=== PATIENT | female | born 1935 | race Caucasian/White ===

== ENCOUNTER 2017-03-17 09:53 | Observation (INO) | payer MEDICARE ==
[2017-03-17] VITALS (10 sets, daily range): BP systolic 103–149; BP diastolic 60–88; PULSE 50–69; RESP 12–20; O2SAT 95–97
[~2017-03-17] VITALS: Ht 154.9 cm; Wt 76.6 kg
--- NOTE | 2017-03-17 10:05 | ED.REPORT ---
HPI-General Illness Date of Service Mar 17, 2017 ED Provider: Ancelmo Mabry MD The patient is a 81 year old female with history of atrial fibrillation on warfarin, hypertension, hyperlipidemia, GERD, and hypothyroidism, who was brought to the emergency department by EMS after she had a near syncopal episode prior to arrival. Last night she woke up after midnight and noticed palpitations and chest "burning." She fell back asleep and when she woke up this morning she felt warm, clammy, and generally weak. Later in the morning she suddenly developed visual changes and lightheadedness. The patient describes the visual changes as everything going hazy and foggy. This lasted for a few minutes and she was able to walk and sit down. She did not fully lose consciousness or hit her head. After the episode she felt generally weak. She denies lateralizing weakness. She is currently taking sotalol twice daily (unsure the dose). Her dose has not recently changed. Nursing Notes Stated Complaint: NEAR SYNCOPE FALL Chief Complaint: Dysrhythmia/Cardiac Nursing Notes Reviewed: Yes Allergies: Uncoded Allergies: NKDA (Allergy, Unknown, 05/03/04) NO KNOWN DRUG ALLERGIES (Ingr Allergy) (Allergy, Unknown, Y, 05/03/04) VALIUM (Allergy, Unknown, 05/03/04) General Time Seen by MD: 10:00 Chief Complaint Other (near syncope) Hx Obtained From: Patient, EMS Arrived By: Ambulance Sudden in Onset?: Yes Onset Occurred: 16 - 30 minutes ago Symptom Duration: 1 - 15 minutes Location: : Chest Quality: Burning Severity: Current: No pain currently Severity: Maximum: Moderate Recent Healthcare: No recent doctor visit, No recent hospitalization Similar Sx Previous: No Past Medical History Past Medical History Atrial fibrillation Hypertension Hyperlipidemia GERD Hypothyroidism Past Surgical History Hysterectomy Cholecystectomy Appendectomy Tubal ligation Family History Noncontributory Smoking History Unknown if Ever Smoker Social History Other Social History: Good social support, Local resident Ambulatory Status Independent Review of Systems Full Review of Systems Constitutional: Reports: Weakness - generalized Cardiovascular: Reports: Chest pain (burning), Palpitations Neurologic: Reports: Change LOC (near syncope), Dizziness, Lightheaded, Vision change, Denies: Focal weakness, Headache Complete sys rev & neg: except as marked. Physical Exam Vital Signs Vital Signs Date Time Temp Pulse Resp B/P Pulse Ox O2 Delivery O2 Flow Rate FiO2 4/21/17 12:33 64 14 112/78 97 Room Air 03/17/17 11:26 65 112/72 03/17/17 10:05 36.6 50 12 103/60 96 Room Air Initial VS: Reviewed Head / Eyes: Atraumatic, Normocephalic, PERRL ENT: Mucous membranes moist, Conjunctiva normal, No scleral icterus Neck: Supple, Non-tender, Full range of motion Respiratory: Breath sounds normal, Clear to auscultation, No respiratory distress Abdomen / GI: Soft, Non-tender, No guarding, No rebound, No distention Lymphatic: No lymphadenopathy Extremities: Vascular intact, Neuro intact, No swelling, No tenderness Skin: Warm, Dry, No cyanosis Psychiatric: Mood/affect normal, Behavior normal, Normal thought content General/Constitutional: Awake, Alert, Cooperative Cardiovascular: Heart sounds NL, Pulses = bilaterally Heart Rate / Rhythm: Positive: Bradycardia, Irregular rhythm Lower Extremity / Pelvis / MS: No swelling, Non-tender, Neurologic intact, Vascular intact, No edema Neurologic: Oriented X3, Speech NL, No motor deficits, No sensory deficits, CN II - XII intact, Cerebellar NL, Memory NL No pronator drift. Strength is 5/5 to all 4 extremities. Interpretation & Diagnostics Lab Results Interpretation Result Diagram: 03/17/17 1000 03/17/17 1000 Test 03/17/17 10:00 White Blood Count 6.2th/mm3 (3.8-10.1) Red Blood Count 4.28mil/mm3 (3.90-5.20) Hemoglobin 13.3g/dL (12.0-15.6) Hematocrit 40.4% (35.0-46.0) Mean Corpuscular Volume 94.4fL (81-100) Mean Corpuscular Hemoglobin 31.1pg (27.0-35.0) Mean Corpuscular Hemoglobin Concent 32.9% (32.0-37.0) Red Cell Distribution Width 12.6% (12.3-15.4) Platelet Count 205bil/L (150-400) Neutrophils (%) (Auto) 66.7% (40-74) Lymphocytes (%) (Auto) 23.1% (14-46) Monocytes (%) (Auto) 9.2% (4-12) Eosinophils (%) (Auto) 0.6% (0-5) Basophils (%) (Auto) 0.2% (0-3) Prothrombin Time 25.4sec (8.1-12.5) Prothromb Time International Ratio 2.33ratio Sodium Level 139mEq/L (134-144) Potassium Level 4.2mEq/L (3.5-5.2) Chloride Level 102mEq/L (97-108) Carbon Dioxide Level 24mmol/L (18-29) Blood Urea Nitrogen 27mg/dL (8-27) Creatinine 0.59mg/dL (0.57-1.00) Estimat Glomerular Filtration Rate 141mL/min (>59) Glucose Level 99mg/dL (60-99) Calcium Level 9.9mg/dL (8.5-10.1) Magnesium Level 2.0mg/dL (1.6-2.6) Total Bilirubin 0.3mg/dL (0.0-1.2) Aspartate Amino Transf (AST/SGOT) 23U/L (0-50) Alanine Aminotransferase (ALT/SGPT) 16U/L (0-32) Alkaline Phosphatase 55U/L (25-165) Troponin T < 0.010ug/L (0.0-0.011) Total Protein 7.3g/dL (6.4-8.4) Albumin 4.4g/dL (3.4-5.0) Thyroid Stimulating Hormone (TSH) 4.870uIU/mL (0.450-4.500) ECG Interpretation ECG Interpretation: Irregular sinus bradycardia with a rate of 49 bpm Nl axis Nl intervals No ST segment changes No T wave abnormalities No prior EKGs available for comparison Time: 10:17 Interpreted by: ED physician X-Ray Chest Interpretation Chest Xray Interpretation: IMPRESSION: Negative chest. No overt heart failure, large pneumothorax, or pleural effusion. Dictated by: Bam Marques M.D. on 03/17/2017 at 10:09 Interpretation / Wet Read by: Interpret - Radiologist Re-Eval/Medical Decision Med Decision/Clinical Course The patient is a 81 year old female with history of atrial fibrillation on warfarin, hypertension, hyperlipidemia, GERD, and hypothyroidism, who was brought to the emergency department by EMS after she had a near syncopal episode prior to arrival. Last night she woke up after midnight and noticed palpitations and chest "burning." She fell back asleep and when she woke up this morning she felt warm, clammy, and generally weak. Later in the morning she suddenly developed visual changes and lightheadedness. The patient describes the visual changes as everything going hazy and foggy. This lasted for a few minutes and she was able to walk and sit down. She did not fully lose consciousness or hit her head. After the episode she felt generally weak. She denies lateralizing weakness. Upon arrival to the emergency department the patient is bradycardic with a heart rate in the 40s and borderline hypotensive with a systolic blood pressure in the 80s to 90s. She reports feeling lightheaded and presyncopal. EKG was obtained and interpreted by myself as documented above. It appears that she is in sinus arrhythmia in the 40s to 50s. I do not see any acute ischemic changes. IV access was obtained via talent analyst to 1 L saline bolus. Given the patient's symptomatic bradycardia I administered 0.5 mg of atropine. Her heart rate improved into the 60s to 80s and her blood pressure improved to normal range. Labs: CBC: unremarkable CMP: unremarkable Troponin: negative TSH: 4.8 INR: 2.33 CXR: Obtained, reviewed and interpreted by myself shows no evidence of infiltrates, effusions or pneumothorax. Cardiac and mediastinal silhouette normal. No bony or soft tissue abnormalities. Because of the patient's significant bradycardia is not entirely clear. That being said, I suspect that she may be an adverse effects related to the dose of her beta paradise. Given the severity of her symptoms and need for intervention I admitted her to the hospital for observation and further revision of her current medications. She has not required percutaneous pacing though pacer pads have been applied should she require this. She was discussed with the admitting hospitalist and transferred in stable condition. Plan for involvement of cardiology on an inpatient basis. Source of Hx: Old records, EMS Time of Eval: 10:35 Re-Evaluation/Progress Note: Discussed importance for admission with the patient. She is worried about her who is at home. She is agreeable with plan and will work on getting ahold of her . Consultation : Referral / Consult Name: Cesar Gamino MD Consulted With: Hospitalist Call Returned at: 12:41 Refrigeration Houseman: Will see patient, Agrees with eval, Agrees with plan, Accepts admit Counseled Regarding: Diagnosis, Lab results, Need for admission Discharge & Departure Primary Impression: Bradycardia Additional Impressions: Near syncope Hypotension Hypotension type: unspecified hypotension type Qualified Code: I95.9 - Hypotension, unspecified Disposition: ADMITTED TO HOSPITAL Discharge Condition All VS Reviewed: Yes Condition: Stable Referrals: Akira Triplett MD (PCP) Stan Enriquez MD Crit Care Except Billable Proc Time Spent: 105-134 minutes Services Performed: Patient management by me, Time spent at bedside, Reviewing test results, Reviewing imaging, Discussing patient care, Documentation in record, Time with fam/surrogate Scribe Attestation Portions of this note were transcribed by Yanet Curry. I, Dr. Mabry personally performed the history, physical exam and medical decision-making; I reviewed and confirmed the accuracy of the information in the transcribed note. Signed by: Ketty Peter, 03/17/2017 at 1245. copies to: Akira Triplett MD; Stan Enriquez MD, Beck O MD Mar 17, 2017 10:05 Yanet Curry Mar 17, 2017 10:33 Deborah Duggan Mar 17, 2017 11:29
[2017-03-17 10:21] LABS: BASOPHILS % (AUTO) 0.2 % (0-3); EOSINOPHILS % (AUTO) 0.6 % (0-5); MONOCYTES % (AUTO) 9.2 % (4-12); Mean Corpuscular Hemoglobin 31.1 pg (27.0-35.0); Mean Corpuscular Volume 94.4 fL (81-100); NEUTROPHILS % (AUTO) 66.7 % (40-74); Platelet Count 205 bil/L (150-400)
[2017-03-17 10:37] LABS: TROPONIN T < 0.010 ug/L (0.0-0.011)
[2017-03-17] MEDS ORDERED: Atropine 1 mg/10 mL (Code) Syringe IVPUSH PRN ×2 (10:40→19:10)
[2017-03-17] MEDS ORDERED: Alum-Mag Hydrox-Simeth 30 mL Suspension PO PRN (10:40)
[2017-03-17] MEDS ORDERED: Ondansetron 2 mg/mL 2 mL Inj IVPUSH PRN (10:40)
[2017-03-17 10:56] LABS: INR 2.33 ratio
--- NOTE | 2017-03-17 11:11 | DRSVH ---
PROCEDURE: X-RAY CHEST ONE VIEW ([id number]) INDICATIONS: sob TECHNIQUE: One view of the chest was acquired. COMPARISON: None. FINDINGS: Surgical changes and devices: None. Defibrillator pads are seen overlying the left chest. Lungs and pleura: No pleural effusions or pneumothorax. Lungs are clear. Mediastinum: Mediastinal contours appear normal. Heart size is normal. Bones and chest wall: No suspicious bony lesions. Overlying soft tissues appear unremarkable. IMPRESSION: Negative chest. No overt heart failure, large pneumothorax, or pleural effusion. Dictated by: Bam Marques M.D. on 03/17/2017 at 10:09 Approved by: Bam Marques M.D. on 03/17/2017 at 10:09
[2017-03-17 14:41] LABS: APPEARANCE,URINE CLEAR (CLEAR,HAZY); COLOR,URINE YELLOW (YELLOW); OCCULT BLOOD,URINE SMALL (NEGATIVE); UROBILINOGEN,URINE NORMAL (NORMAL)
[2017-03-17 15:40] LABS: TROPONIN T < 0.010 ug/L (0.0-0.011)
[2017-03-17] MEDS ORDERED: AMLO5TAB2 PO (17:35)
[2017-03-17] MEDS ORDERED: WARF5TAB PO (17:35)
[2017-03-17] MEDS ORDERED: LEVO88TA4 PO (17:35)
[2017-03-17] MEDS ORDERED: SIMV40TA5 PO (17:35)
[2017-03-17] MEDS ORDERED: SOTA80TA PO (17:42)
--- NOTE | 2017-03-17 18:22 | PCM.HPMED ---
Subjective Date of Service Mar 17, 2017 Primary Provider: Admitting Physician: Cesar Gamino MD Primary Care Physician: Akira Triplett MD Attending Physician: Cesar Gamino MD History of Present Illness: Chief complaint lightheadedness HISTORY was OBTAINED FROM PATIENT / MEDITECH NOTES History of present illness 81-year-old female, chest pain that was burning last night, today lightheadedness, clammy. Per EMS HR in the 30s. no recent illness. no change in medications, new cream for knee pain. no double sotolol dose. echo this year likely. cardioversion in ER 09/2016 [place]. never bradycardic previously. presyncope previously was associated w/ RVR it appears. In the ER sinus arrhythmia 40s w/ resolved symptoms after atropine and IV fluids. Review of Systems - none of the following - F/C/sick contact / wt change/ [place] / sob / cough / cp / abdominal pain/n/v/diarrhea / bleeding/bruising / change in voiding / dysuria/ yeast infections / rash ambulates right greater than left left swelling FAMILY HX brother cardiac aneurysm SOCIAL HX distant social smoker, no etoh, no recreational drugs MEDICATIONS levothyroxine amlodipine simvastatin coumadin sotolol Past Medical History Atrial fibrillation Hypertension Hyperlipidemia GERD Hypothyroidism Hysterectomy Cholecystectomy Appendectomy Tubal ligation arthroscopy riht knee Exam on admission NAD A and O x 3 mood affect WNL NC/AT no icterus no injected eyes EOMI PERRL /no pharyngeal lesions/ no oral lesions / hearing intact Supple neck CTAB equal chest rise / no accessory muscle use / speaks in full sentences / no rrw RRR S1 S2 / no mrg / 2+ radial pulses Soft nt nd + BS no hepatosplenomegaly mild right gerater than left edema no cyanosis no ecchymosis of lower extremities No rash / no jaundice [place] symmetrical facies EKG sinus arrhythmia [address] changes Trop neg x 1 BNP 1800 UA pendng LFT normal inr 2.5 Imaging CXR negative Active issues and reason for admission hypotension/bradycardia, hx of atrial fibrillation, consdier new SSS, awaiting call back from oncall cell tester [facility] --pending echo/ serial trop/ orthostatics/ cortisol/ wt/ i/o --cont coumadin --hold sotalol hypothyroidism w/ elevated tsh, --normal free t4 Chronic issues known prior to admission, present on admission Atrial fibrillation Hypertension Hyperlipidemia GERD Hypothyroidism Diet cardiac DVT prophylaxis already anticoagulated on coumadin Code full Disposition OBS status Assessment and plan were discussed with patient family. Allergies Uncoded Allergies: NKDA (Allergy, Unknown, 05/03/04) NO KNOWN DRUG ALLERGIES (Ingr Allergy) (Allergy, Unknown, Y, 05/03/04) VALIUM (Allergy, Unknown, 05/03/04) PMH Social History Hx Alcohol Use: No Hx Substance Use: No Smoking Status: Unknown if Ever Smoker Exam Vital Signs Vital Sign - Last Date Time Temp Pulse Resp B/P Pulse Ox O2 Delivery O2 Flow Rate FiO2 03/17/17 14:13 36.3 62 18 117/62 97 Room Air Lab and Diagnostics Result Diagram: 03/17/17 1000 03/17/17 1000 Cesar Gamino MD Mar 17, 2017 14:21
[2017-03-17] MEDS ORDERED: Warfarin 5 MG, Warfarin 2.5 MG PO ONE ×2 (18:30)
[2017-03-18] VITALS (12 sets, daily range): BP systolic 107–154; BP diastolic 60–100; PULSE 63–84; RESP 18–20; O2SAT 93–97
[2017-03-18 05:14] LABS: Mean Corpuscular Hemoglobin 30.7 pg (27.0-35.0); Mean Corpuscular Volume 93.4 fL (81-100)
[2017-03-18 05:26] LABS: INR 2.33 ratio
[2017-03-18 05:35] LABS: Magnesium 2.1 mg/dL (1.6-2.6)
--- NOTE | 2017-03-18 06:24 | NUR ---
Uneventful night Patient slept throughout the night. denies pain/discomfort. Tele SR 60-70s. patient alert and orientedx4 able to make needs known. cooperative with care. updated and agrees on current plan of care. will continue to monitor.
--- NOTE | 2017-03-18 07:27 | PCM.PHAPRO ---
Progress Date Mar 18-Feb INR 2.33 2.33 INR change Warf Dose 7.5 7.5 Otoniel Merida Pharm.D Mar 18, 2017 07:27
--- NOTE | 2017-03-18 12:15 | NUR ---
Social Work: Initial Assessment Data & Assessment: See Initial Assessment. EMR reviewed. Patient is a 81 y/o female that admitted due to near syncope per H&P. SW met with patient at bedside to complete initial assessment, SW role reviewed amd discharge plan discussed. Patient was alert and oriented x 3. Patient has Medicare and AARP as insurance. Patient has no VA or LTC benefits. Patient sees Dr. Anderson at [facility] for primary care needs. patient has a re-admit score of 2 low risk. Patient lives in a one story home with her family and there is three steps to enter. Patient is independent at [place] and does drive. Patient reported that she has a can that she uses when her knee is bothering her. Patient has no SNF or HH history. Patient does not have any current discharge needs. SW provided contact information on patient's white board. SW will continue to follow. Plan: Patient is likely to discharge home no needs via POV. Patient plans to drive herself home. SW will continue to follow. Alexis Willingham LMSW, LISA Addendum: 03/18/17 at 1225 by ALEXIS GRANGER Amended: Links added.
--- NOTE | 2017-03-18 13:03 | NUR ---
MARY JO explained and signed. Copy of MARY JO and Medicare self administered medication information provided.
--- NOTE | 2017-03-18 16:44 | PCM.DIMED ---
Discharge Instructions Date of Service Mar 18, 2017 Dates of Hospitalization Mar 17, 2017 at 12:53 Discharge Diagnosis Discharge Diagnosis sinus bradycardia and hypotension related to sotalol chronic paroxysmal Atrial fibrillation HTN Medication Instructions 1. Obtain blood pressure cuff from son. 2. New sotalol dose is 1/2 tab am 1/2 tab pm, ie 40mg 2 x per day -if heart rate is > 90, then add another 1/2 tab - 40mg or 1tab-80mg for the day -if heart rate is < 60, then hold sotalol 3. hold amlodipine for now (but if systolic blood pressure is more than 160, then it's OK to take amlodipine for that day) 4. follow up with Dr. Enriquez or primary care within 1-2 weeks to evaluate for sick sinus syndrome or new medication other than sotalol Cesar Gamino MD Mar 18, 2017 16:43
[2017-03-18] MEDS ORDERED: SOTA80TA PO (16:46)
--- NOTE | 2017-03-18 16:55 | PCM.DC.MED ---
Discharge Summary Date of Service Mar 18, 2017 Dates of Hospitalization Date of Hospital Admission Mar 17, 2017 at 12:53 Date of Discharge: Mar 18, 2017 Providers: Admitting Physician: Jose Luis Pagan MD Primary Care Physician: Akira Triplett MD Attending Physician: Jose Luis Pagan MD Diagnosis at Time of Discharge Diagnosis at Time of Discharge sinus bradycardia and hypotension related to sotalol chronic paroxysmal Atrial fibrillation w/ therapeutic INR HTN hypothyroidism dyslipidemia Consultations telephone [facility] Procedures XRay, CTs & MRIs Pending STUDIES - cortisol level EKG sinus arrhythmia [address] changes Trop neg x 1 BNP 1800 inr 2.5 CXR negative ECG 12 Lead Brief History History of present illness 81-year-old female, chest pain that was burning last night, today lightheadedness, clammy. Per EMS HR in the 30s. no recent illness. no change in medications, new cream for knee pain. no double sotolol dose. echo this year likely. cardioversion in ER 09/2016 [place]. never bradycardic previously. presyncope previously was associated w/ RVR it appears. In the ER sinus arrhythmia 40s w/ hypotension, but resolved symptoms after hemodynamically stabilized w/ atropine and IV fluids. She remained sinus rhythm, observed > 24 hours, HR 60s, normal orthostatics. Records from [place] obtained and case discussed w/ [facility] cotton [facility]er, who recommended to hold sotalol for > 24 hours, and decrease daily dose to 1/2 on discharge. Amlodipne was held. Follow up to be facilitated by cotton grader service. Pt to use her son's bp machine to monitor HR - add more sotalol if tachycardic, hold if bradycardic. [employer] Electrician Supervisor/Dr. Enriquez to consider SSS or to switch from sotalol to tikosyn, which would require hospitalization for initiation. Hospital Course Hypotension/bradycardia resolved w/ holding sotalol and atropine/IVF in ER, hx of atrial fibrillation, considering new SSS, appreaciated [facility] --trop negative / orthostatics normal / cortisol pending / free T4 normal --cont coumadin --LIKELY dCHF, 07/2016 ECHO EF60% mod MR pulm htn, bnp 1090 at that time ALLERGY TO DILTIAZEM HOLD AMLODIPINE, hypothyroidism w/ elevated tsh, --normal free t4 Chronic issues known prior to admission, present on admission Atrial fibrillation Hypertension Hyperlipidemia GERD Hypothyroidism Diet cardiac DVT prophylaxis already anticoagulated on coumadin Assessment and plan were discussed with patient family. Exam Vital Signs (Last) Date Time Temp Pulse Resp B/P Pulse Ox O2 Delivery O2 Flow Rate FiO2 03/18/17 16:45 84 142/92 03/18/17 14:46 20 95 Room Air 03/18/17 12:37 36.4 Test 03/17/17 10:00 03/17/17 13:00 03/17/17 14:26 03/18/17 04:50 Neutrophils (%) (Auto) 66.7% (40-74) Lymphocytes (%) (Auto) 23.1% (14-46) Monocytes (%) (Auto) 9.2% (4-12) Eosinophils (%) (Auto) 0.6% (0-5) Basophils (%) (Auto) 0.2% (0-3) Total Bilirubin 0.3mg/dL (0.0-1.2) Aspartate Amino Transf (AST/SGOT) 23U/L (0-50) Alanine Aminotransferase (ALT/SGPT) 16U/L (0-32) Alkaline Phosphatase 55U/L (25-165) Pro-B-Type Natriuretic Peptide 1838pg/mL (0-738) Total Protein 7.3g/dL (6.4-8.4) Albumin 4.4g/dL (3.4-5.0) Thyroid Stimulating Hormone (TSH) 4.870uIU/mL (0.450-4.500) Urine Color Yellow (YELLOW) Urine Appearance Clear (CLEAR,HAZY) Urine pH 6.0 (5.0-8.0) Urine Specific [place] 1.015 (1.003-1.035) Urine Protein Negativemg/dL (NEG,TRACE) Urine Glucose (UA) Negativemg/dL (NEGATIVE) Urine Ketones Tracemg/dL (NEGATIVE) Urine Occult Blood Small (NEGATIVE) Urine Nitrite Negative (NEGATIVE) Urine Bilirubin Negative (NEGATIVE) Urine Urobilinogen Normalmg/dL (NORMAL) Urine Leukocyte Esterase Trace (NEGATIVE) Urine RBC 3-10/hpf (0-2) Urine WBC 0-5/hpf (0-5) Urine Epithelial Cells Occasional/hpf (NONE-MOD) Urine Crystals None seen (NONE SEEN) Urine Bacteria None/hpf (NONE-FEW) Urine Hyaline Casts Occasional/lpf (NONE) Urine Granular Casts None seen (NONE SEEN) Urine Waxy Casts None seen (NONE SEEN) Urine Red Blood Cell Casts None seen (NONE SEEN) Urine White Blood Cell Casts None seen (NONE SEEN) Urine Mucus Present (None Seen) Urine Trichomonas None seen (NONE SEEN) Urine Yeast None (NONE SEEN) Urinalysis Comment None Hold Urine Received (Received) Troponin T < 0.010ug/L (0.0-0.011) Free Thyroxine 1.20ng/dL (0.82-1.77) White Blood Count 5.5th/mm3 (3.8-10.1) Red Blood Count 4.10mil/mm3 (3.90-5.20) Hemoglobin 12.6g/dL (12.0-15.6) Hematocrit 38.3% (35.0-46.0) Mean Corpuscular Volume 93.4fL (81-100) Mean Corpuscular Hemoglobin 30.7pg (27.0-35.0) Mean Corpuscular Hemoglobin Concent 32.9% (32.0-37.0) Red Cell Distribution Width 12.7% (12.3-15.4) Platelet Count 177bil/L (150-400) Prothrombin Time 25.4sec (8.1-12.5) Prothromb Time International Ratio 2.33ratio Sodium Level 139mEq/L (134-144) Potassium Level 3.9mEq/L (3.5-5.2) Chloride Level 103mEq/L (97-108) Carbon Dioxide Level 23mmol/L (18-29) Blood Urea Nitrogen 20mg/dL (8-27) Creatinine 0.51mg/dL (0.57-1.00) Estimat Glomerular Filtration Rate 167mL/min (>59) Glucose Level 106mg/dL (60-99) Calcium Level 9.6mg/dL (8.5-10.1) Magnesium Level 2.1mg/dL (1.6-2.6) Discharge Medications Discharge Medications Amlodipine (Amlodipine) 5 Mg Tablet 5 MG PO DAILY (Reported) Levothyroxine (Levothyroxine) 88 Mcg Tablet 88 MCG PO DAILY (Reported) Simvastatin (Simvastatin) 40 Mg Tablet 40 MG PO HS (Reported) Sotalol HCl (Sotalol) 80 Mg Tablet 80 MG PO BID take 1/2 tab in the morning take 1/2 tab in the evening Prescribed by: JOSE LUIS PAGAN MD Warfarin Sodium (Coumadin) 5 Mg Tablet 7.5 MG PO DAILY (Reported) Additional med instructions 1. Obtain blood pressure cuff from son. 2. New sotalol dose is 1/2 tab am 1/2 tab pm, ie 40mg 2 x per day -if heart rate is > 90, then add another 1/2 tab - 40mg or 1tab-80mg for the day -if heart rate is < 60, then hold sotalol 3. hold amlodipine for now (but if systolic blood pressure is more than 160, then it's OK to take amlodipine for that day) 4. follow up with Dr. Enriquez or primary care within 1-2 weeks to evaluate for sick sinus syndrome or new medication other than sotalol Jose Luis Pagan MD Mar 18, 2017 16:55
[2017-03-18] MEDS ORDERED: Warfarin 5 MG, Warfarin 2.5 MG PO ONE ×2 (17:00)
--- NOTE | 2017-03-18 17:52 | NUR ---
Orthos and ambulation Orthos completed x 2, Negative. Pt ambulated in the hallway with this RN, no complains of dizziness, SOB, lightheadedness or chest discomfrt. JOHANI page to MD, awaiting finalized discharge orders. Frequent rounding in place, will continue to monitor.
--- NOTE | 2017-03-18 18:20 | NUR ---
Discharge Pt discharged at this time, all belongings gathered and returned to pt. VSS. No complains of increased pain, Bradycardia, dizziness or feeling lightheaded. IV D/Cd intact, tele monitor removed. Hard copy of new script given to pt to fill. Discharge packet printed and reviewed with pt. Pt declined offer of wheelchair. Pt escorted from [facility] by this RN to elevator. Steady, stable gait. Pt will transport self home in private vehicle.
== END 2017-03-18 19:00 | disposition home or self-care (01) ==
LOC: SED 09:53 → EDBD 09:53 → MPC 12:53
PROVIDERS: ADMIT Urology; ATTEND Urology
DX: I95.2 Hypotension due to drugs (principal); R00.1 Bradycardia, unspecified; I48.0 Paroxysmal atrial fibrillation; T44.7X5A Adverse effect of beta-adrenoreceptor antagonists, initial encounter; E03.9 Hypothyroidism, unspecified; K21.9 Gastro-esophageal reflux disease without esophagitis; I10 Essential (primary) hypertension; E78.5 Hyperlipidemia, unspecified; Z79.01 Long term (current) use of anticoagulants